=== PATIENT | female | born 1950 | race Caucasian/White ===

== ENCOUNTER → 2016-07-09 | Outpatient (CLI) | payer OTHER ==
[~2016-07-09] MED LIST: ATV5 PO; CLX20 PO; CMD1 PO; ECHINACEA; FRRG PO
--- NOTE | 2016-07-10 08:47 | MAMMOGRAPHY REPORT ---
UNILATERAL LEFT DIGITAL DIAGNOSTIC MAMMOGRAM TOMOSYNTHESIS WITH CAD: 07/09/2016 CLINICAL HISTORY: History of right breast cancer status post mastectomy. The patient is currently a symptomatic. TECHNIQUE: Breast tomosynthesis in addition to standard 2D mammography was performed. Current study was also evaluated with a Computer Aided Detection (CAD) system. Left CC and MLO 2-D and tomosynth esis images were obtained. COMPARISON: Comparison is made to exams dated: 07/09/2015 mammogram, 07/06/2014 ultrasound, 07/06/2014 mammogram, 07/04/2013 mammogram, 07/01/2012 mammogram, and 06/30/2011 mammogram - [facility]. BREAST COMPOSITION: The tissue of the left breast is heterogeneously dense, which may obscure small masses. FINDINGS: There are no suspicious masses, calcifications, or areas of architectural distortion seen within the left breast. There has been no significant interval change compared to prior exams. St atus post right mastectomy. IMPRESSION: ACR BI-RADS CATEGORY 2: BENIGN There is no mammographic evidence of malignancy in the left breast. A 1 year screening mammogram is recommended. The patient has been verbally notified of the results. Approximately 10% of breast cancers are not detected with mammography. A negative mammographic repor t should not delay biopsy if a clinically suggestive mass is present. Jenn Beard M.D. ah/:07/09/2016 08:34:53 Printing Engineer: Isi PALACIOS)(Bhavesh), [facility] letter sent: Normal 1/2 BI-RADS Code: ACR BI-RADS Category 2: Benign
== END | disposition home or self-care (01) ==
LOC: C.MAMM 08:07
PROVIDERS: ATTEND Family Medicine
DX: Z08 Encounter for follow-up examination after completed treatment for malignant neoplasm (principal); Z85.3 Personal history of malignant neoplasm of breast; Z90.11 Acquired absence of right breast and nipple

== ENCOUNTER 2017-05-12 07:47 | Inpatient (IN) | payer OTHER ==
[2017-04-13 10:30] VITALS: BMI 26.0
--- NOTE | 2017-04-13 10:57 | PAT Medication Instructions ---
Service Date Apr 13, 2017. Current Home Medication List Calcium Carbonate-Vitamin D (Calcium + D), 1 TAB PO PRN Citalopram Hydrobromide (Citalopram Hydrobromide), 1 TAB PO QAM Lorazepam (Ativan), 0.5 MG PO HS Polyethylene Glycol-Propylene (Systane), 1 DROPS OP for ID Medication Instructions For Your Scheduled Surgery - Hold the following medications the morning of surgery: Calcium Carbonate-Vitamin D (Calcium + D), 1 TAB PO PRN - Take the following medications the morning of surgery with a sip of water OTHERWISE NOTHING TO EAT OR DRINK AFTER MIDNIGHT: Citalopram Hydrobromide (Citalopram Hydrobromide), 1 TAB PO QAM Polyethylene Glycol-Propylene (Systane), 1 DROPS OP - Take the following medications as scheduled the night before surgery: Lorazepam (Ativan), 0.5 MG PO HS Polyethylene Glycol-Propylene (Systane), 1 DROPS OP If you have any questions please call us at [phone] or [phone] or [phone]
[2017-04-13 11:33] LABS: BASO % 0.2 %; BASO ABS # 0.01 K/uL (0-0.2); EOS % 1.2 %; EOS ABS # 0.07 K/uL (0-0.5); HEMOGLOBIN 13.6 g/dL (12.0-16.0); IG# 0.01 K/uL (0.00-0.02); LYMPH ABS # 1.24 K/uL (1.2-3.4); MEAN CELL VOLUME 89.5 fL (80-100); MEAN CORPUSCULAR HEMOGLOBIN 29.7 pg (25-34); MEAN CORPUSCULAR HGB CONC 33.2 g/dl (32-36); MEAN PLATELET VOLUME 9.6 fL (7.4-10.4); MONO % 6.9 %; MONO ABS # 0.41 K/uL (0.11-0.59); NEUT % 70.5 %; NEUT ABS # 4.17 K/uL (1.4-6.5); PLATELET COUNT 282 K/uL (130-400); RED CELL DISTRIBUTION WIDTH CV 13.9 % (11.5-14.5); RED CELL DISTRIBUTION WIDTH SD 45.8 fL (36.4-46.3); WHITE BLOOD COUNT 5.91 K/uL (4.8-10.8)
[2017-04-13 11:46] LABS: PTT PATIENT 27.3 SECONDS (21.0-31.0)
--- NOTE | 2017-04-13 11:58 | DIAGNOSTIC IMAGING REPORT ---
CHEST 2 VIEWS ROUTINE CLINICAL HISTORY: Preoperative chest COMPARISON STUDY: No previous studies for comparison. FINDINGS: The cardiac and mediastinal contours are normal. There is no evidence of focal pulmonary consolidation. There is no evidence of failure. No pleural effusions are visualized.[ Surgical clips project over the right breast/chest wall. IMPRESSION: No active disease in the chest. Electronically signed by: Victorino Malki M.D. 04/13/2017 11:57 AM Dictated Date/Time: 04/13/2017 11:56 AM
[2017-04-13 12:51] LABS: BLOOD UREA NITROGEN 17 mg/dl (7-18); CALCIUM 9.4 mg/dl (8.5-10.1); CARBON DIOXIDE 27 mmol/L (21-32); CREATININE 0.69 mg/dl (0.60-1.20); GLUCOSE 94 mg/dl (70-99); POTASSIUM 4.4 mmol/L (3.5-5.1); SODIUM 137 mmol/L (136-145)
--- NOTE | 2017-05-08 09:16 | HISTORY & PHYSICAL EXAMINATION ---
DATE OF ADMISSION: 05/12/2017 CHIEF COMPLAINT: Left knee pain. HISTORY OF PRESENT ILLNESS: The patient is a 66-year-old white female who presents for surgical treatment of her left knee. She has got a long history of left knee pain and discomfort that has gradually gotten worse over time. She has been through extensive conservative treatment that has become less successful over time. She cannot walk any prolonged distances due to pain. Pain is mostly on the medial side of her knee. If she is relaxed she pays for it the next couple days. She had her right knee replaced back in 2011 and has done well from this and would like to proceed with left knee replacement. PAST MEDICAL HISTORY: Significant for: 1. Arthritis. 2. Breast cancer, status post mastectomy, in remission. PREVIOUS SURGERIES: Include: 1. Total mastectomy. 2. Right knee replacement done 10/24/2011. 3. Dental implant. ALLERGIES: None. CURRENT MEDICINES: Include: 1. Lorazepam 0.05 mg before bedtime. 2. Citalopram 0.05 mg a day. SOCIAL HISTORY: A 66-year-old female. She is . Two children. Three drinks per week. Does not smoke. FAMILY HISTORY: Significant for diabetes, heart disease, breast cancer, colon cancer. REVIEW OF SYSTEMS: Negative for diabetes, neurologic problems, vascular problems or bleeding disorders. She does have this history of breast cancer, in remission. No known bleeding problems. PHYSICAL EXAMINATION: GENERAL: A healthy, pleasant middle-aged female. Looks to be in excellent health. HEENT: Benign. NECK: Supple, no lymphadenopathy. LUNGS: Clear to auscultation. HEART: Regular rate and rhythm. ABDOMEN: Soft, nontender, nondistended. EXTREMITIES: Grossly neurovascularly intact except as follows: Examination of left knee reveals the patient walks independently. She has got varus alignment to her knee. She walks with a bit of a varus thrust with weightbearing. Range of motion is 5-125. No instability. No pain with hip motion. X-RAYS: X-rays of left knee reviewed. She has advanced left knee medial compartment DJD. She has complete loss of her medial joint space. She has got osteophytes off the medial femoral condyle and medial tibial plateau. ASSESSMENT: A 66-year-old white female status post right knee replacement 5 years ago with advanced left knee degenerative joint disease. She has failed conservative treatment and would like to have her left knee replaced. PLAN: We are going to take her to the operating room and do left total knee replacement. The risks and benefits of this procedure were explained to the patient and include but not limited to DVT, PE, , infection, neurological injury, vascular injury, bleeding problem, pain, limited range of motion, stiffness, failure to relieve her symptoms, incomplete relief of symptoms, need for further surgery in the future, fracture, leg length inequality, nerve palsy, persistent pain, etc. The patient understands and desires to proceed. Informed consent was obtained. As far as discharge plans, she is planning to be discharged to home and use Count Includes [facility] home health program.
[~2017-05-12] VITALS: Ht 167.6 cm; Wt 73.5 kg
[2017-05-12] VITALS (8 sets, daily range): BP systolic 106–136; BP diastolic 67–81; PULSE 64–91; TEMP 36.2–36.8; O2SAT 95–100; Ht 167.6 cm; Wt 73.5 kg
[~2017-05-12 07:47] MED LIST changes: +ACETAMINOPHEN 500 MG TAB PO SCH; +ATROPINE SULFATE 0.1 MG/ML 5ML SYR IV PRN; -ATV5 PO; +BUPIVACAINE 0.25% 30 ML VIAL ONE; +BUPIVACAINE 0.5 % 5 MG/1 ML PF 10ML VIAL ONE; +BUPIVACAINE LIPOSOME 266 MG, BUPIVACAINE/EPINEPHRINE INJ 50 ML, SODIUM CHLORIDE 0.9% PF... INFIL SCH; +CALC600T9 PO; +CEFAZOLIN 2000MG IV PUSH 10 ML IV SCH; +CITA20TA4 PO; -CLX20 PO; -CMD1 PO; -ECHINACEA; +EpHEDrine SULFATE INJ 50 MG/ML AMP IV PRN; +FAMOTIDINE 20 MG TAB PO SCH; -FRRG PO; +GABAPENTIN 300 MG CAP PO SCH; +LACTATED RINGER'S 1000ML 1,000 ML IV SCH; +LACTATED RINGER'S 1000ML 500 ML IV SCH; +LACTATED RINGER'S 1000ML IV SCH; +LORA-741 PO; +METOCLOPRAMIDE HCL 10 MG TAB PO SCH; +ONDANSETRON INJ 2 MG/ML 2 ML VIAL IV PRN; +POLYSOL4 OP; +SCOPOLAMINE 1.5 MG TDSY TD SCH; +TRANEXAMIC ACID INJ 1,000 MG in SYRINGE 0 ML IV SCH
--- NOTE | 2017-05-12 08:41 | History & Physical Bridge Note ---
H&P Re-Evaluation Bridge Note: I have examined the patient, reviewed the History & Physical and in the interval since the performance of the History & Physical I have noted the following changes of clinical significance: No changes noted
[2017-05-12] MEDS ORDERED: MIDAZOLAM HCL 1 MG/ML 2ML VIAL ONE ×2 (10:05→11:13)
[2017-05-12] MEDS ORDERED: BUPIVACAINE LIPOSOME 1/3% 266 MG/20 ML VIAL INFIL ONE (10:38)
[2017-05-12] MEDS ORDERED: SODIUM CHLORIDE 0.9% PF 50 ML VIAL ONE (10:38)
[2017-05-12] MEDS ORDERED: BUPIVACAINE/EPINEPHRINE 0.25% 1:200,000 30 ML VIAL ONE (10:38)
[2017-05-12] MEDS ORDERED: BACITRACIN 50000 UNIT VIAL ONE (10:38)
[2017-05-12] MEDS ORDERED: PROPOFOL IV EMULSION 10 MG/ML 20 ML VIAL IV ONE (11:59)
--- NOTE | 2017-05-12 12:29 | [facility] Post Operative Brief Note ---
Immediate Operative Summary Operative Date May 12, 2017. Pre-Operative Diagnosis Left Knee Advanced Degenerative Joint Disease Post-Operative Diagnosis Left Knee Advanced Degenerative Joint Disease Procedure(s) Performed Left Total Knee Arthroplasty Surgeon Dr. Burrell Vp Integrity Surgeon(s) ANTHONY Diane Estimated Blood Loss 50ml Findings Left Knee DJD Fluids (cc crystalloids) 1700 cc Specimens A. Left Knee Bone and Tissue Drains None Anesthesia Spinal Complication(s) None Disposition Recovery Room / PACU
[2017-05-12] MEDS ORDERED: SILVER SULFADIAZINE 1% CR 50 GM JAR EXT PRN (12:30)
[2017-05-12] MEDS ORDERED: BISACODYL 10 MG SUPP PR PRN (12:30)
[2017-05-12] MEDS ORDERED: HYDROmorphone INJ 0.5 MG/0.5 ML SYR IV PRN (12:30)
[2017-05-12] MEDS ORDERED: MAGNESIUM HYDROXIDE SUSP 30 ML UDC PO PRN (12:30)
[2017-05-12] MEDS ORDERED: ALUMINUM/MAGNESIUM/SIMETH (MAALOX MAX) 30 ML UDC PO PRN (12:30)
[2017-05-12] MEDS ORDERED: DiphenhydrAMINE HCL 50 MG/ML VIAL IV PRN (12:30)
[2017-05-12] MEDS ORDERED: ZOLPIDEM TARTRATE 5 MG TAB PO PRN (12:30)
[2017-05-12] MEDS ORDERED: METOCLOPRAMIDE HCL INJ 5 MG/ML 2 ML VIAL IV PRN (12:30)
--- NOTE | 2017-05-12 12:54 | DIAGNOSTIC IMAGING REPORT ---
L KNEE 1 OR 2 VIEWS ROUTINE CLINICAL HISTORY: Degenerative arthritis POSTOP STUDY COMPARISON: Outside radiograph dated 03/26/2017 DISCUSSION: There are postsurgical changes of a total left knee arthroplasty and patellar resurfacing. The femoral and tibial components appear well seated. Overlying skin elder are visualized. There is air in the soft tissues consistent with recent surgery. IMPRESSION: Postsurgical changes of a total left knee arthroplasty. Electronically signed by: Victorino Malik M.D. 05/12/2017 12:53 PM Dictated Date/Time: 05/12/2017 12:52 PM
--- NOTE | 2017-05-12 13:01 | OPERATIVE REPORT ---
DATE OF OPERATION: 05/12/2017 SURGEON: Antonio Burrell MD CORPORATE CLAIMS EXAMINER: ANTHONY Chen PREOPERATIVE DIAGNOSIS: Left knee degenerative joint disease. POSTOPERATIVE DIAGNOSIS: Same. PROCEDURE PERFORMED: Left cemented posterior stabilized total knee arthroplasty. COMPLICATIONS: None. ESTIMATED BLOOD LOSS: 50 mL. FLUID REPLACEMENT: 1700 mL crystalloid fluid replacement. ANESTHESIA: Spinal with adductor canal block. DRAINS: None. SPECIMENS: Left knee sent for pathology. OPERATIVE INDICATIONS: The patient is a 66-year-old fairly active and healthy female who has had a long history of knee problems. She underwent a right knee replacement about 5-1/2 years ago and has done well from that. Over the past several years, she developed increased pain and discomfort in her left knee. She has been unresponsive to conservative care. It is fairly affecting her quality of life and she elected to proceed with total knee arthroplasty. OPERATIVE FINDINGS: Operative findings revealed advanced left knee DJD. She had extensive grade 4 changes in the medial femoral condyle and medial tibial plateau. She had some focal grade 4 changes of the lateral compartment as well as the patellofemoral compartment. He had a large knee joint effusion. OPERATIVE IMPLANTS: Operative implants consisted of: 1. Biomet Vanguard size 62.5 left posterior stabilized femoral component. 2. Biomet size 71 tibial tray. 3. A 12-mm posterior stabilized polyethylene insert. 4. A 31 x 8 all poly patella. OPERATIVE PROCEDURE: The patient was taken to the operating room, identified and placed on the operating table in the supine position. All contact areas were appropriately padded. IV antibiotics were provided by the anesthesia team. A spinal anesthetic and adductor canal block had been provided in the holding area. Petty catheter was placed in sterile fashion. Left thigh tourniquet was then placed and the left lower extremity was then prepped and draped in the usual sterile fashion. Left leg was elevated and exsanguinated with Esmarch and tourniquet was placed at 300 mmHg. An anterior approach to the left knee was then performed through a longitudinal incision centered over the patella. Sharp dissection was carried through the subcutaneous tissues down to the level of the extensor mechanism. Medial parapatellar arthrotomy incision was made. Some subperiosteal dissection was carried out medially. The fat pad was resected from beneath the patellar tendon. The lateral patellofemoral ligament was released. The patella was everted and knee was flexed. The osteophytes were taken off the distal femur. The ACL and PCL were then released from the distal femur and the tibia subluxated anteriorly. The external tibial alignment jig was then placed in the anterior face of the tibia and adjusted 14 mm medially. Proximal tibial cut was made to remove about a millimeter from the most deficient aspect of the medial tibial plateau. Tibia was sized to a size 71. Some osteophytes were taken off medial and posteromedially. Attention was then drawn to the femur. The distal femur was entered with a sharp drill. Intramedullary canal was suctioned. A left 5-degree valgus cutting guide was placed. Distal femoral cutting block was pinned in place. Distal femoral cut was made to take an additional 3 mm of bone off the distal femur. Femur was then sized to a size 62.5. We downsized this a little over half size. The AP cutting block was pinned parallel to the epicondylar axis, which was 5 degrees of external rotation. The anterior cut, anterior chamfer, posterior cut, and posterior chamfer cuts were made. Box cutting guide was placed and adjusted slightly lateral and the box cut was made. The knee was flexed. The remnants of the medial and lateral menisci were excised. The osteophytes were taken off the posterior aspect of the femur. A trial femoral component was placed. The tibial tray was pinned in maximum external rotation and drill and stem punch were used to create defect in the proximal tibia for the tibial tray. The knee was then trialed and the 12-mm insert fit most appropriately. Attention was then drawn to the patella. The patella was cleaned of all soft tissues. The patella thickness measured 19 mm in thickness and it was cut down to 13. It was sized to a size 31 patella. Lug holes were drilled for the 31 patella. Lateral osteophyte was removed. Patella button was placed. Knee was taken through range of motion and the patella tracked nicely with no thumbs test. Attention was then drawn toward placement of the permanent components. All trial components were removed. A bone plug was placed in the distal femur to limit blood loss. A double batch of Palacos G cement was mixed. A left size 62.5 posterior stabilized femoral component, size 71 tibial tray, 12-mm posterior stabilized polyethylene insert, and a 31 x 8 all poly patella were then cemented in place. Knee was brought out into full extension until cement hardened. A final cement check was then performed. Pericapsular tissues were injected with a total of 100 mL of a combination of 20 mL of Exparel, 30 mL of normal saline, and 50 mL of 0.25% Marcaine with epinephrine. The patient did receive 1 gram of tranexamic acid. The tourniquet was then let down for final a tourniquet time of 53 minutes. Hemostasis was assured with the use of electrocautery. The wound was once again irrigated. The extensor mechanism was then closed with a combination of #1 PDS suture and #1 Vicryl suture in a [id number] fashion. Extensor mechanism was checked and found to be intact. The subcutaneous tissues were then closed with 2-0 Dexon suture in buried interrupted fashion. Skin was closed skin elder. Leg was then cleaned and dried and a sterile dressing with Xeroform, 4 x 4, sterile cast padding and Pan bandage were applied. The patient was then transferred to the recovery room in stable condition. The patient tolerated the procedure well with no complications. All needle and sponge counts were correct at the end of the operation. I attest to the content of the Intraoperative Record and any orders documented therein. Any exception s are noted below.
--- NOTE | 2017-05-12 13:13 | Anesthesiology Progress Note ---
Anesthesia Post Op Note Date & Time May 12, 2017 at 13:13 Vital Signs Pain Intensity: 0 Vital Signs Past 12 Hours Date Time Temp Pulse Resp B/P (MAP) Pulse Ox O2 Delivery O2 Flow Rate FiO2 05/12/17 13:08 36.5 05/12/17 13:01 64 16 05/12/17 13:01 67 16 100 05/12/17 13:00 118/65 05/12/17 12:56 78 21 100 05/12/17 12:56 78 21 05/12/17 12:55 120/72 05/12/17 12:51 81 27 05/12/17 12:51 82 27 100 05/12/17 12:50 69 18 117/63 100 05/12/17 12:50 69 18 05/12/17 12:45 72 15 05/12/17 12:45 73 15 125/69 100 05/12/17 12:40 71 15 120/64 100 05/12/17 12:40 70 15 05/12/17 12:35 84 21 108/63 100 05/12/17 12:35 36.4 86 16 108/63 99 Oxymask 10 05/12/17 12:35 84 21 05/12/17 08:31 36.4 91 18 136/81 97 Room Air Notes Mental Status: alert / awake / arousable, participated in evaluation Pt Amnestic to Procedure: Yes Nausea / Vomiting: adequately controlled Pain: adequately controlled Airway Patency, RR, SpO2: stable & adequate BP & HR: stable & adequate Hydration State: stable & adequate Neuraxial Anesthesia: was administered, sensory block is resolving Anesthetic Complications: no major complications apparent
[2017-05-12] MEDS ORDERED: CALCIUM 600MG + VIT D 400 IU TAB PO PRN (13:45)
[2017-05-12] MEDS: D5W AND 1/2NSS + 20MEQ KCL 1,000 ML IV SCH (14:28)
[2017-05-12] MEDS: ACETAMINOPHEN 500 MG TAB PO SCH ×2 (14:28→20:49)
[2017-05-12] MEDS: CHECK SCOPOLAMINE PATCH PLACEMENT SCH ×3 (16:00→23:55)
[2017-05-12] MEDS: TRAMADOL HCL 50 MG TAB PO PRN (16:46)
[2017-05-12] MEDS ORDERED: TRANEXAMIC ACID INJ 1,000 MG in SODIUM CHLORIDE 0.9% 100ML 100 ML IV SCH (17:00)
[2017-05-12] MEDS: FERROUS GLUCONATE 324 MG TAB PO SCH (17:45)
[2017-05-12] MEDS: KETOROLAC TROMETHAMINE 15 MG/ML VIAL IV. SCH (18:01)
[2017-05-12] MEDS: CEFAZOLIN IV 1,000 MG in SYRINGE 0 ML IV SCH (18:01)
[2017-05-12] MEDS: ONDANSETRON INJ 2 MG/ML 2 ML VIAL IV PRN (18:36)
[2017-05-12] MEDS: LORAZEPAM 0.5 MG TAB PO SCH (20:49)
[2017-05-12] MEDS: SENNA 8.6 MG TAB PO SCH (20:49)
[2017-05-12] MEDS: DOCUSATE SODIUM 100 MG CAP PO SCH (20:49)
[2017-05-12] MEDS: ASPIRIN 325 MG ECTAB PO SCH (20:49)
[2017-05-13] MEDS: D5W AND 1/2NSS + 20MEQ KCL 1,000 ML IV SCH ×2 (00:59→08:36)
[2017-05-13] MEDS: KETOROLAC TROMETHAMINE 15 MG/ML VIAL IV. SCH ×5 (01:00→23:29)
[2017-05-13] MEDS: CEFAZOLIN IV 1,000 MG in SYRINGE 0 ML IV SCH (01:01)
[2017-05-13 03:50] VITALS: BP 111/65; PULSE 76; TEMP 36.7; O2SAT 95
[2017-05-13] MEDS: ONDANSETRON INJ 2 MG/ML 2 ML VIAL IV PRN ×2 (05:28→12:43)
[2017-05-13] MEDS: ACETAMINOPHEN 500 MG TAB PO SCH ×3 (05:29→21:45)
[2017-05-13 06:33] LABS: HEMATOCRIT 34.2 % (37-47); HEMOGLOBIN 11.3 g/dL (12.0-16.0); MEAN CELL VOLUME 89.5 fL (80-100); MEAN CORPUSCULAR HEMOGLOBIN 29.6 pg (25-34); MEAN PLATELET VOLUME 9.8 fL (7.4-10.4); PLATELET COUNT 224 K/uL (130-400); RED CELL DISTRIBUTION WIDTH SD 45.7 fL (36.4-46.3); WHITE BLOOD COUNT 11.31 K/uL (4.8-10.8)
[2017-05-13 07:00] LABS: CALCIUM 8.5 mg/dl (8.5-10.1); CREATININE 0.59 mg/dl (0.60-1.20); POTASSIUM 3.9 mmol/L (3.5-5.1)
[2017-05-13 07:54] VITALS: BP 110/66; PULSE 87; TEMP 36.8; O2SAT 95
--- NOTE | 2017-05-13 08:14 | Anesthesiology Progress Note ---
Anesthesia Post Op Note Date & Time May 13, 2017 at 08:14 Vital Signs Pain Intensity: 8.0 Vital Signs Past 12 Hours Date Time Temp Pulse Resp B/P (MAP) Pulse Ox O2 Delivery O2 Flow Rate FiO2 05/13/17 07:54 36.8 87 14 110/66 (81) 95 Room Air 05/13/17 03:50 36.7 76 18 111/65 (80) 95 Room Air 05/12/17 23:38 36.8 72 18 110/71 (84) 95 Room Air Notes Mental Status: alert / awake / arousable, participated in evaluation Pt Amnestic to Procedure: Yes Nausea / Vomiting: adequately controlled Pain: improving with treatment Airway Patency, RR, SpO2: stable & adequate BP & HR: stable & adequate Hydration State: stable & adequate Neuraxial Anesthesia: sensory block resolved Anesthetic Complications: no major complications apparent
[2017-05-13] MEDS: ASPIRIN 325 MG ECTAB PO SCH ×2 (08:34→21:04)
[2017-05-13] MEDS: PANTOprazole SOD 40 MG TAB PO SCH (08:34)
[2017-05-13] MEDS: DOCUSATE SODIUM 100 MG CAP PO SCH ×2 (08:34→21:04)
[2017-05-13] MEDS: MULTIVITAMIN TAB PO SCH (08:35)
[2017-05-13] MEDS: CITALOPRAM 20 MG TAB PO SCH (08:35)
[2017-05-13] MEDS: FERROUS GLUCONATE 324 MG TAB PO SCH ×3 (08:35→17:39)
[2017-05-13] MEDS: TRAMADOL HCL 50 MG TAB PO PRN ×2 (08:40→13:17)
[2017-05-13 09:50] VITALS: O2SAT 95
--- NOTE | 2017-05-13 11:17 | PROGRESS NOTE ---
DATE: 05/13/2017 SUBJECTIVE: A 66-year-old white female postop day 1 from a left knee replacement. She is doing well. Sore but therapy went pretty good. No chest pain or shortness of breath. Not feeling dizzy or lightheaded. Her nerve function has returned. OBJECTIVE: VITAL SIGNS: Temperature is 36.8. Vital signs stable. GENERAL: Reveals a pleasant, middle-aged female. She was doing some therapy when I visited her over this morning. LUNGS: Clear to auscultation. HEART: Has a regular rate and rhythm. ABDOMEN: Soft, nontender, nondistended. EXTREMITIES: Grossly neurovascularly intact except as follows: Examination of the left lower extremity reveals the dressing to be clean, dry and intact. Leg is well aligned. She can dorsiflex and plantarflex her foot appropriately. She is neurologically intact. LABORATORY DATA: Hemoglobin 11.3. Hematocrit 34.2. Electrolytes are stable. ASSESSMENT: A 66-year-old white female postop day 1 from left knee replacement, doing pretty well. Pain is controlled. She is neurologically intact. PLAN: 1. DVT prophylaxis including thigh-high TEDs, SCDs, and aspirin twice a day. 2. PT/OT. Weightbear as tolerated. Left total knee protocol. 3. Pain control. Doing pretty well with current pain regimen. 4. Disposition: She is hoping to be discharged to home with some home health once adequately recovered.
[2017-05-13] MEDS ORDERED: ASPEC325 PO (11:22)
[2017-05-13] MEDS ORDERED: ONDA4TAB65 PO (11:22)
[2017-05-13] MEDS ORDERED: ACET-24 PO (11:22)
[2017-05-13] MEDS ORDERED: ULT50X PO (11:22)
--- NOTE | 2017-05-13 11:39 | Discharge Instructions ---
Discharge Instructions Date of Service May 13, 2017. Admission Reason for Admission: Left Knee Degenerative Joint Disease Discharge Discharge Diagnosis / Problem: Left Knee Replacement Discharge Goals Goal(s): Decrease discomfort, Improve function, Increase independence, Improve disease control, Therapeutic intervention Activity Recommendations Activity Limitations: per Instructions/Follow-up section Weightbearing Status: Left weightbearing . Instructions / Follow-Up Instructions / Follow-Up ACTIVITY RECOMMENDATIONS: Physical Therapy: * You will go to physical therapy three times each week for four to six weeks after your surgery in order to regain your knee range of motion and to retrain your knee to work properly. * It is just as important to make sure you are getting your knee perfectly straight as it is to regain your knee bend. * Taking a pain pill an hour before therapy can help you have a more productive and comfortable therapy session. Home Exercise: * You were shown a series of exercises (heel props, heel slides, etc.) in the hospital. Do these exercises three to four times each day including the exercises you were shown in physical therapy. Walking: * Get up and walk several times each day. For the first four weeks, try not to stand or walk for more than one hour at a time. If you do stand or walk for more than one hour, you will not hurt anything, but your knee and leg will likely swell. * As you feel comfortable, you may change from the walker or crutches to a cane and then to independent walking. MEDICATIONS: New Medicine: * You will likely be taking one or more of these medications: 1. Tramdol - A quick and shorter-acting pain medication. Take one to two tablets every four to six hours to lessen your pain. 2. Aspirin - Thins your blood to lessen the chance of forming a blood clot. * The most common side effects of pain medicine and iron are nausea and constipation. If nausea or constipation is too much of a problem or if you have any questions about your new medicines or doses, call [facility] at . We will try to help you manage these issues. VERY IMPORTANT TO READ AND REVIEW" Pain: * The immediate post-operative period after knee replacement surgery is often quite painful. * You are given a prescription for pain medicine. You should take it, as directed, when you need it, especially before physical therapy and before going to bed. Pain that interferes with sleep is very common and can last several months. * You will likely need pain medicine for the first four to six weeks. It will not stop all of the pain. The pain will lessen and as you feel better, you may change to milder pain medicine such as Tylenol. * The most common side effects of pain medicine are nausea and constipation, so don't take more than you need. SPECIAL CARE INSTRUCTIONS: TEDs/Elastic Stockings: * The white elastic stockings help limit swelling and prevent blood clots from forming in your legs. The more you wear them, the more they work. * Wear them for six weeks after knee replacement surgery and four weeks after partial knee replacement. Prevention of Infection: * Take antibiotics one hour before any dental cleaning, dental work, urological procedure, gastrointestinal procedure or any invasive surgery in order to prevent your new joint from getting infected. * You may get the antibiotics from the doctor performing the procedure or you may call our office at before and we will call in a prescription to the pharmacy of your choice. Things to Watch For: * Drainage from the incision site that occurs more than one week after your surgery. * Severely increased knee/leg pain or swelling. * Increased redness at the incision site. * Fever above 102 degrees Fahrenheit. * Unusual chest pain or shortness of breath. * Unusual pain or burning with urination. Call [facility] at with any of the above problems or if you have any questions about your medicines or recovery. FOLLOW UP VISIT: Make an appointment to see your doctor for approximately two weeks after surgery for a progress check and staple removal by calling the office at . Current Hospital Diet Patient's current hospital diet: Regular Diet Discharge Diet Recommended Diet: Regular Diet Procedures Procedures Performed: Left Total Knee Arthroplasty Pending Studies Studies pending at discharge: no Medical Emergencies . Who to Call and When: Medical Emergencies: If at any time you feel your situation is an emergency, please call [phone] immediately. . Non-Emergent Contact Non-Emergency issues call your: Surgeon . "Provider Documentation" section prepared by Antonio Burrell. . VTE Core Measure Inpt VTE Proph given/why not?: Other Anticoagulation, T.E.D. Stockings, SCD's
[2017-05-13 12:40] VITALS: BP 124/74; PULSE 87; TEMP 36.9; O2SAT 96
[2017-05-13 15:07] VITALS: BP 132/77; PULSE 82; TEMP 36.7; O2SAT 94
[2017-05-13] MEDS: CHECK SCOPOLAMINE PATCH PLACEMENT SCH ×2 (16:00→23:29)
[2017-05-13] MEDS: LORAZEPAM 0.5 MG TAB PO SCH (21:04)
[2017-05-13] MEDS: SENNA 8.6 MG TAB PO SCH (21:04)
[2017-05-13 23:52] VITALS: BP 126/75; PULSE 86; TEMP 36.8; O2SAT 93
[2017-05-14] MEDS: ACETAMINOPHEN 500 MG TAB PO SCH (05:48)
[2017-05-14] MEDS: KETOROLAC TROMETHAMINE 15 MG/ML VIAL IV. SCH (05:48)
--- NOTE | 2017-05-14 07:15 | PROGRESS NOTE ---
DATE: 05/14/2017 SUBJECTIVE: A 66-year-old white female postop day 2 from a left knee replacement. She is doing better today. Nausea is resolved. No chest pain or shortness of breath. Not feeling dizzy or lightheaded. OBJECTIVE: VITAL SIGNS: Temperature is 36.8. Vital signs stable. GENERAL: Reveals a pleasant, middle-aged female. She is sitting up in bed, looks pretty comfortable. EXTREMITIES: Examination of the left leg reveals the leg to be well aligned. Dressing is clean, dry and intact. Calf is soft and supple. She is neurologically intact. ASSESSMENT: A 66-year-old female postop day 2 from left knee replacement, doing well. Nausea is improved. Pain is controlled. PLAN: 1. DVT prophylaxis including thigh-high TEDs, SCDs, and aspirin twice a day. 2. PT/OT. Weight bear as tolerated. Left total knee protocol. 3. Pain control, doing pretty well with current pain regimen. 4. Disposition: Plan to discharge to home with some home health later today.
[2017-05-14 07:20] VITALS: BP 117/73; PULSE 73; TEMP 36.7; O2SAT 95
[2017-05-14] MEDS: CHECK SCOPOLAMINE PATCH PLACEMENT SCH (07:40)
[2017-05-14] MEDS: ASPIRIN 325 MG ECTAB PO SCH (08:49)
[2017-05-14] MEDS: PANTOprazole SOD 40 MG TAB PO SCH (08:49)
[2017-05-14] MEDS: MULTIVITAMIN TAB PO SCH (08:49)
[2017-05-14] MEDS: FERROUS GLUCONATE 324 MG TAB PO SCH (08:49)
[2017-05-14] MEDS: CITALOPRAM 20 MG TAB PO SCH (08:50)
[2017-05-14] MEDS: DOCUSATE SODIUM 100 MG CAP PO SCH (08:50)
[2017-05-14] MEDS: TRAMADOL HCL 50 MG TAB PO PRN (08:51)
[2017-05-14 10:21] VITALS: BP 117/73; PULSE 73; TEMP 36.7; O2SAT 95
== END 2017-05-14 11:53 | disposition home health service (06) | DRG 470 ==
LOC: C.ACU 07:47 → C.3E 08:55 → ENRESERV 12:56
PROVIDERS: ADMIT Orthopaedic Surgery Sports Medicine; ATTEND Orthopaedic Surgery Sports Medicine
PROC: 0SRD0J9 Replacement of Left Knee Joint with Synthetic Substitute, Cemented, Open Approach (ICD-10-PCS; principal; 2017-05-12 10:30)
DX: M17.12 Unilateral primary osteoarthritis, left knee (principal); Z96.651 Presence of right artificial knee joint; Z85.3 Personal history of malignant neoplasm of breast; Z90.10 Acquired absence of unspecified breast and nipple; Z83.3 Family history of diabetes mellitus; Z82.49 Family history of ischemic heart disease and other diseases of the circulatory system; Z80.3 Family history of malignant neoplasm of breast; Z80.0 Family history of malignant neoplasm of digestive organs

== ENCOUNTER → 2017-07-10 | Outpatient (CLI) | payer OTHER ==
[~2017-07-10] MED LIST changes: +ACET-24 PO; -ACETAMINOPHEN 500 MG TAB PO SCH; +ASPEC325 PO; -ATROPINE SULFATE 0.1 MG/ML 5ML SYR IV PRN; -BUPIVACAINE 0.25% 30 ML VIAL ONE; -BUPIVACAINE 0.5 % 5 MG/1 ML PF 10ML VIAL ONE; -BUPIVACAINE LIPOSOME 266 MG, BUPIVACAINE/EPINEPHRINE INJ 50 ML, SODIUM CHLORIDE 0.9% PF... INFIL SCH; -CEFAZOLIN 2000MG IV PUSH 10 ML IV SCH; -EpHEDrine SULFATE INJ 50 MG/ML AMP IV PRN; -FAMOTIDINE 20 MG TAB PO SCH; -GABAPENTIN 300 MG CAP PO SCH; -LACTATED RINGER'S 1000ML 1,000 ML IV SCH; -LACTATED RINGER'S 1000ML 500 ML IV SCH; -LACTATED RINGER'S 1000ML IV SCH; -METOCLOPRAMIDE HCL 10 MG TAB PO SCH; -ONDANSETRON INJ 2 MG/ML 2 ML VIAL IV PRN; -SCOPOLAMINE 1.5 MG TDSY TD SCH; -TRANEXAMIC ACID INJ 1,000 MG in SYRINGE 0 ML IV SCH; +ULT50X PO
--- NOTE | 2017-07-10 13:54 | MAMMOGRAPHY REPORT ---
UNILATERAL LEFT DIGITAL DIAGNOSTIC MAMMOGRAM TOMOSYNTHESIS WITH CAD: 07/10/2017 CLINICAL HISTORY: Asymptomatic. Personal history of breast cancer. TECHNIQUE: Breast tomosynthesis in addition to standard 2D mammography was performed. Current study was also evaluated with a Computer Aided Detection (CAD) system. Left CC and MLO 2D and tomosynthesi s images were obtained. COMPARISON: Comparison is made to exams dated: 07/09/2016 mammogram, 07/09/2015 mammogram, 07/06/2014 m ammogram, 07/04/2013 mammogram, 07/01/2012 mammogram, and 06/30/2011 mammogram - [facility]. BREAST COMPOSITION: The tissue of the left breast is heterogeneously dense, which may obscure small masses. FINDINGS: There are no suspicious masses, calcifications, or areas of architectural distortion noted in the left breast. There has been no significant interval change compared to prior exams. A benign coarse calcification in the left upper outer quadrant is stable. Status post right mastectomy. IMPRESSION: ACR BI-RADS CATEGORY 2: BENIGN There is no mammographic evidence of malignancy in the left breast. A 1 year screening mammogram is r ecommended. The patient has been verbally notified of the results. Approximately 10% of breast cancers are not detected with mammography. A negative mammographic report should not delay biopsy if a clinically suggestive mass is present. Jenn Beard M.D. ah/:07/10/2017 09:01:41 Mortgage Loan Underwriter: Mariel Mcmillan RT(R)(M), [facility] letter sent: Normal 1/2 BI-RADS Code: ACR BI-RADS Category 2: Benign
== END | disposition home or self-care (01) ==
LOC: C.MAMM 08:35
PROVIDERS: ATTEND Family Medicine
DX: Z12.31 Encounter for screening mammogram for malignant neoplasm of breast (principal); Z90.11 Acquired absence of right breast and nipple